=== PATIENT | female | born 1960 | race Hispanic/Latino ===

== ENCOUNTER 2016-06-13 11:54 | Outpatient (CLI) | payer MEDICARE ==
--- NOTE | 2016-06-13 15:17 | XRay Report ---
CHEST TWO VIEWS: 06/13/16 11:54:00 CLINICAL: Cough. COMPARISON: 08/11/15 FINDINGS: Normal heart and pulmonary vasculature. The lungs are normally expanded and clear.Median sternotomy wires. Stable aortic calcifications. Stable thoracic kyphosis with no fractures identified. IMPRESSION: No acute cardiopulmonary process.
== END 2016-06-13 11:55 | disposition home or self-care (01) ==
LOC: SPVIMAG 11:54
DX: I70.0 Atherosclerosis of aorta (principal); M40.294 Other kyphosis, thoracic region
CPT/HCPCS: 71020

== ENCOUNTER 2016-06-23 19:18 | Emergency (ER) | payer MEDICARE ==
[2016-06-23 19:40] VITALS: BP 178/72
--- NOTE | 2016-06-23 22:55 | Emergency Department Report ---
ED Back Pain/Injury HPI - General Chief Complaint: Back Pain/Injury Stated Complaint: LEFT LEG AND HIP PAIN Time Seen by Provider: 06/23/16 22:44 Source: patient Limitations: No Limitations, Physical Limitation (due to pain) - History of Present Illness Initial Comments: Patient presents with lower back pain on the left side that radiates down her leg 4 days. She has a history of a "pinched nerve." She states she goes to her PCP Dr. Booker who gives her Percocet No. 10. She states he has recommended her to orthopedic but she has yet to go. She states that she has been taking Motrin 800 mg and Percocet tens but has ran out of the Percocet 10. She admits to having x-rays in the past that shows deterioration of lumbar disc. She is requesting a "pain pill" She also has a history of elevated blood pressure and states she has taken her lisinopril and metoprolol today. MD Complaint: back pain -: Gradual Similar Symptoms Previously: Yes Radiation: left leg Severity: severe Severity scale (0 -10): 10 Quality: sharp Consistency: constant Improves With: medication Worsens With: movement, walking Context: other (she denies injury, states she has a flair to 3 times per month) Associated Symptoms: numbness (down left leg, however she states she has a history of PVD), difficulty walking. denies: difficulty urinating, incontinence , nausea/vomiting - Related Data Home Medications Medication Instructions Recorded Confirmed Last Taken Albuterol Sulfate [Albuterol 0.63%] 0.63 mg IH TID PRN 08/02/13 08/02/13 19:00 Benazepril (Nf) 10 mg PO DAILY 08/02/13 08/02/13 08/02/13 19:00 Clopidogrel [Plavix] 75 mg PO QDAY 08/02/13 08/02/13 08/02/13 19:00 Estrogens, Conjugated [Premarin] 0.625 mg PO QDAY 08/02/13 08/02/13 08/02/13 19: 00 Insulin Aspart Prot/Aspart 50 unit SQ BIDDIAB 08/02/13 08/02/13 08/02/13 19:00 [Novolog Mix 70/30] Metoprolol [Lopressor] 50 mg PO BID 08/02/13 08/02/1314 19:00 Torsemide [Demadex] 20 mg PO QDAY 08/02/13 08/02/13 08/02/13 19:00 metFORMIN [Glucophage] 500 mg PO BID 08/02/13 08/02/13 08/02/13 19:00 Previous Rx's Medication Instructions Recorded Last Taken Type Ibuprofen [Motrin] 600 mg PO Q6HR PRN #60 tablet 08/03/13 Unknown Rx Docusate Sodium [Colace] 100 mg PO BID PRN #20 capsule 01/15/14 Unknown Rx HYDROcodone/ACETAMINOPHEN [Lee 1 each PO Q6HR #20 tablet 01/15/14 Unknown Rx 5/325 Tablet] Acetaminophen/Codeine [Tylenol #3] 1 tab PO Q6H PRN #20 tab 12/01/14 Unknown Rx Acetaminophen/Codeine [Tylenol #3] 1 tab PO Q6H PRN #15 tab 07/04/15 Unknown Rx Prednisone [predniSONE 5 mg (6-Day 5 mg PO .TAPER #1 tab.ds.pk 07/04/15 Unknown Rx Pack, 21 Tabs)] Allergies Allergy/AdvReac Type Severity Reaction Status Date / Time No Known Allergies Allergy Verified 01/15/14 01:09 ED Review of Systems ROS: Stated complaint: LEFT LEG AND HIP PAIN Other details as noted in HPI Constitutional: denies: chills, fever Respiratory: denies: cough, shortness of breath, wheezing Cardiovascular: denies: chest pain, palpitations Gastrointestinal: denies: abdominal pain, nausea, diarrhea Genitourinary: denies: urgency, dysuria, discharge Musculoskeletal: as per HPI Skin: denies: rash, lesions Neurological: denies: headache, weakness, paresthesias ED Past Medical Hx - Past Medical History Previous Medical History?: Yes Hx Hypertension: Yes Hx Diabetes: Yes - Surgical History Past Surgical History?: Yes Hx Open Heart Surgery: Yes (triple bypass) Hx Cholecystectomy: Yes Hx Appendectomy: Yes Additional Surgical History: partial hysterectomy, right knee - Social History Smoking Status: Light Tobacco Smoker Substance Use Type: None - Medications Home Medications: Home Medications Medication Instructions Recorded Confirmed Last Taken Type Albuterol Sulfate [Albuterol 0.63%] 0.63 mg IH TID PRN 08/02/13 08/02/13 19:00 History Benazepril (Nf) 10 mg PO DAILY 08/02/13 08/02/13 08/02/13 19:00 History Clopidogrel [Plavix] 75 mg PO QDAY 08/02/13 08/02/13 08/02/13 19:00 History Estrogens, Conjugated [Premarin] 0.625 mg PO QDAY 08/02/13 08/02/13 08/02/13 19: 00 History Insulin Aspart Prot/Aspart 50 unit SQ BIDDIAB 08/02/13 08/02/13 08/02/13 19:00 History [Novolog Mix 70/30] Metoprolol [Lopressor] 50 mg PO BID 08/02/13 08/02/13 08/02/13 19:00 History Torsemide [Demadex] 20 mg PO QDAY 08/02/13 08/02/13 08/02/13 19:00 History metFORMIN [Glucophage] 500 mg PO BID 08/02/13 08/02/13 08/02/13 19:00 History Ibuprofen [Motrin] 600 mg PO Q6HR PRN #60 tablet 08/03/13 Unknown Rx Docusate Sodium [Colace] 100 mg PO BID PRN #20 capsule 01/15/14 Unknown Rx HYDROcodone/ACETAMINOPHEN [Lee 1 each PO Q6HR #20 tablet 01/15/14 Unknown Rx 5/325 Tablet] Acetaminophen/Codeine [Tylenol #3] 1 tab PO Q6H PRN #20 tab 12/01/14 Unknown Rx Acetaminophen/Codeine [Tylenol #3] 1 tab PO Q6H PRN #15 tab 07/04/15 Unknown Rx Prednisone [predniSONE 5 mg (6-Day 5 mg PO .TAPER #1 tab.ds.pk 07/04/15 Unknown Rx Pack, 21 Tabs)] ED Physical Exam - General Limitations: No Limitations General appearance: alert, in no apparent distress - Head Head exam: Present: atraumatic, normocephalic - Neck Neck exam: Present: normal inspection, full ROM. Absent: tenderness - Respiratory Respiratory exam: Present: normal lung sounds bilaterally. Absent: respiratory distress - Cardiovascular Cardiovascular Exam: Present: regular rate, normal rhythm. Absent: systolic murmur, diastolic murmur, rubs, gallop - GI/Abdominal GI/Abdominal exam: Present: soft, normal bowel sounds - Extremities Exam Extremities exam: Present: normal inspection, full ROM (but with pain), tenderness, normal capillary refill - Expanded Lower Extremity Exam Left Hip exam: Present: normal inspection, full ROM Upper Leg exam: Present: normal inspection, full ROM Knee exam: Present: normal inspection, full ROM Lower Leg exam: Present: normal inspection, full ROM Neuro vascular tendon exam: Present: no vascular compromise - Back Exam Back exam: Present: normal inspection, full ROM, tenderness (right lumbar) - Neurological Exam Neurological exam: Present: alert, oriented X3 - Psychiatric Psychiatric exam: Present: normal affect, normal mood - Skin Skin exam: Present: warm, dry, intact, normal color. Absent: rash - Other Other exam information: pedal pulses +1 bilateral, no discoloration of LE, no redness or swelling noted. ED Course Vital Signs 06/23/16 19:37 Temperature 98.5 F Pulse Rate 54 L Respiratory 18 Rate Blood Pressure 178/72 O2 Sat by Pulse 99 Oximetry ED Medical Decision Making - Medical Decision Making I spoke with Dr. Yin about this patient and her request for a refill on Percocet until she can get in to see her primary care physician. He states to all for her Motrin 800 mg and Valium 5 mg, but that we cannot refill her Percocet prescription. Should decline Valium and states that she has Motrin/ ibuprofen at home. After being told we could not refill her percocet pt decided to elope. - Differential Diagnosis chronic back pain Critical Care Time: No Critical care attestation.: If time is entered above; I have spent that time in minutes in the direct care of this critically ill patient, excluding procedure time. ED Disposition Clinical Impression: Chronic back pain Disposition: ELOPED Is pt being admited?: No Does the pt Need Aspirin: No Condition: Stable
== END 2016-06-23 23:00 | disposition left against medical advice (07) ==
LOC: ED 19:18
DX: M54.5 Low back pain (principal); G89.29 Other chronic pain; R20.0 Anesthesia of skin; I10 Essential (primary) hypertension; E11.9 Type 2 diabetes mellitus without complications; Z72.0 Tobacco use; Z79.4 Long term (current) use of insulin
CPT/HCPCS: 99281

== ENCOUNTER 2017-05-02 08:45 | Outpatient (CLI) | payer MEDICARE ==
--- NOTE | 2017-05-03 16:53 | Vascular Lab Report ---
LOWER EXTREMITY VENOUS DUPLEX: REASON FOR EXAM: Edema of the lower extremities. COMMENTS ON THE RIGHT: All veins visualized are freely compressible without evidence of internal echogenicity. Flow is spontaneous and phasic throughout. COMMENTS ON THE LEFT: All veins visualized are freely compressible without evidence of internal echogenicity. Flow is spontaneous and phasic throughout. IMPRESSION: No evidence of acute or chronic deep venous thrombosis in either lower extremity.
== END 2017-05-02 08:46 | disposition home or self-care (01) ==
LOC: VAS 08:45
DX: R60.0 Localized edema (principal)
CPT/HCPCS: 93970